=== PATIENT | female | born 2000 | race Caucasian/White ===

== ENCOUNTER 2022-08-29 11:50 | Inpatient (IN) | payer BC, MEDICAID, SELFPAY ==
[2022-08-29 12:07] VITALS: BP 115/71; PULSE 62; RESP 18; TEMP 36.5; O2SAT 99; BMI 23.8
[2022-08-29 12:11] VITALS: BP 115/71; PULSE 62; RESP 18; TEMP 36.5; O2SAT 99
--- NOTE | 2022-08-29 12:24 | MHC.CARE ---
[facility] contacts: Counseling Office, Yi Francois - [phone]/After hours projection camera operator [phone]
[2022-08-29 13:03] LABS: MANUAL DIFF FLAG NO
[2022-08-29 13:07] LABS: Basophils Absolute Auto 0.1 X10*3/uL (0.0-0.2); Basophils Percent Auto 0.8 % (0-2); Eosinophils Percent Auto 0.2 % (0-4); Hematocrit 47.5 % (37.0-47.0); Hemoglobin 16.4 g/dl (12.0-16.0); Imm Gran Abs Auto 0.03 X10*3/uL (0.00-0.03); Imm Gran Pct Auto 0.3 % (0.0-0.4); Lymphocytes Absolute Auto 1.9 X10*3/uL (1.2-4.9); Lymphocytes Percent Auto 18.6 % (20-40); Mean Corpuscular HGB Conc 34.5 g/dl (31.0-35.0); Mean Corpuscular Hemoglobin 29.9 pg (27.0-33.0); Mean Corpuscular Volume 86.5 fL (80.0-98.0); Mean Platelet Volume 9.2 fL (9.4-12.3); Monocytes Absolute Auto 0.7 X10*3/uL (0.1-1.2); Monocytes Percent Auto 6.8 % (2-11); Neutrophils Absolute Auto 7.6 x10*3/uL (2.0-8.3); Neutrophils Percent Auto 73.3 % (45-73); Platelet Count 286 X10*3/uL (160-400); Red Blood Count 5.49 X10*6/uL (4.20-5.50); Red Cell Distribution Width 11.7 % (11.0-16.0); White Blood Count 10.4 X10*3/uL (4.8-10.8)
[2022-08-29 13:18] LABS: COVID-19 Test Negative (Negative); IDNOW Serial# 16C4AD1C
[2022-08-29 13:28] LABS: Alanine Aminotransferase 10 U/L (0-31); Albumin Level 4.7 g/dL (3.5-5.0); Alkaline Phosphatase 80 U/L (39-117); Anion Gap 11 (12-20); Aspartate Amino Transferase 16 U/L (5-31); Bilirubin Direct 0.6 mg/dL (0.0-0.5); Bilirubin Total 2.8 mg/dL (0.0-1.0); Blood Urea Nitrogen 10 mg/dL (9-16); Calcium 9.9 mg/dL (8.4-10.2); Carbon Dioxide 29 mmol/L (22-29); Chloride 105 mmol/L (96-108); Creatinine Clr Calc Pharmacy 85.2; Estimated Glomerular Filt Rate > 60; Glucose Random 81 mg/dL (60-115); Lipase 17 U/L (8-78); Potassium 4.1 mmol/L (3.3-5.1); Sodium 141 mmol/L (135-145); Total Protein 7.6 g/dL (6.5-8.0)
[2022-08-29 13:30] LABS: Ethanol < 10 mg/dL
[2022-08-29 13:36] LABS: HCG Quantitative < 2 mIU/mL
[2022-08-29 13:49] LABS: UPreg QC Valid YES; Urine Pregnancy NEGATIVE (NEGATIVE)
[2022-08-29 13:56] LABS: Appearance Urine Clear; Color Urine Yellow; Glucose Urine UA Negative (Negative); Leukocyte Esterase Urine Trace (Negative); Nitrite Urine Negative (Negative); Specific Gravity - Urine <= 1.005 (1.005-1.025); UMIC TRIGGER UACC YES; Urine Blood Large (3+) (Negative); Urine Ketones Negative (Negative); Urine Protein Negative (Neg-Trace)
[2022-08-29 13:59] LABS: Bacteria Urine None Seen (None Seen); Hyaline Casts Urine 0-2 /LPF (0-2); Squamous Epithelial Cell Urine 0-2 /HPF (0-2); WBC Urine 0-5 /HPF (0-5)
[2022-08-29 14:00] VITALS: RESP 18
[2022-08-29 14:02] LABS: Amphetamine Screen Urine Not Detected (Not Detect); Barbiturates, Urine Not Detected (Not Detect); Benzodiazepines Screen Urine Not Detected (Not Detect); Cannabinoid Screen Urine Not Detected (Not Detect); Cocaine Screen Urine Not Detected (Not Detect); Fentanyl, urine Not Detected (Not Detect); Opiate Screen Urine Not Detected (Not Detect); Phencyclidine Screen Urine Not Detected (Not Detect)
--- NOTE | 2022-08-29 14:03 | PC.NURSE ---
ED provider at bedside for initical evaluation.
--- NOTE | 2022-08-29 14:12 | ED.PSYCH ---
HPI - Psych General Chief Complaint: Psychiatric Symptoms Stated Complaint: From [facility], AMS per EMS Time Seen by Provider: 08/29/22 13:56 Source: patient and RN notes reviewed History of Present Illness HPI Narrative: Patient is previously healthy 21-year-old college student at [employer]. She is from [facility]. She states she has been having increased anxiety, depression, vague suicidal ideation without a specific plan. No prior hospitalizations for psychiatric issues. She denies any known medical issues but recently had the flu, 2 weeks ago. Treated with Tamiflu. She states since then she has been feeling very tired and has not yet recovered. Otherwise no history of asthma, diabetes, hypertension or any other medical issues that she is aware of. She does not take medications. She has not tried to harm herself. Related Data Home Medications Medication Instructions Recorded Confirmed No Known Home Meds 08/29/22 08/29/22 Allergies Allergy/AdvReac Type Severity Reaction Status Date / Time No Known Allergies Allergy Verified 08/29/22 12:12 Review of Systems Constitutional: Comments: No fevers or chills. Positive recent malaise however Cardiovascular: Comments: No chest pain Respiratory: Comments: No dyspnea Gastrointestinal: Comments: No abdominal issues Genitourinary: Comments: No urinary bonilla PMFSH Past Medical History Medical History (Updated 08/31/22 @ 15:58 by Ting Daly) No known health problems Surgical History (Updated 08/29/22 @ 12:09 by Savanah Villaseñor) No history of previous surgery Social History Social History Household Members: Friend(s) Household Members Other:: Roommate (1) Housing: Other Housing Other:: Dorm Do you presently have visiting nurse or other home services: No Alcohol intake: never Patient Tobacco Use Status: Never used Tobacco Smoked in Last 30 Days: No e-Cigarette/Vaping Use: Never Used Patient Interested in Nicotine Replacement: No Use of substances other than those prescribed or required for medical reasons: Yes Substance Use Type: Marijuana and Caffiene Substance Use Type Other:: A couple cups of coffee Substance Use Frequency: Daily Last Used Substance: Weeks (ago) Last Used Substance Other:: 2 weeks Currently Displaying Signs/Symptoms of Drug Intoxication Withdrawal: No Any prior treatment program specific to substance use: No Have you been hit, kicked, punched, or otherwise hurt by someone within the past year? If so, by whom?: No Do you feel safe in your current relationship?: No Current Relationship Is there a partner from a previous relationship who is making you feel unsafe now?: Yes ( Not because of violence, but because of their own suicidal intentions ) Are you made to feel afraid or neglected: No [employer] Healthcare Practices: [facility] Advance Directives: No Advance Directives Information Provided: No Healthcare Proxy: No Guardian: No Do you have thoughts of harming others: None Do you have a plan to hurt others: No Plan Recently lost weight without trying: Unsure Eating poorly because of decreased appetite: Yes Nutrition Risks: No Nutritional Risk Patient : No : No Poor oral hygiene: No service: No Sexual orientation: Straight/Heterosexual Physical Exam Vital Signs: Vital Signs: Last Vital Signs Temp 97.7 F 08/31/22 08:00 Pulse 88 08/31/22 08:00 Resp 16 08/30/22 17:42 BP 111/62 08/31/22 08:00 Pulse Ox 100 08/31/22 08:00 O2 Del Method 08/31/22 08:00 BMI result Body Mass Index 23.8 Const: Other: Awake alert. No acute distress. Cooperative. HEENT: Other: Normocephalic atraumatic Resp: Other: Clear and equal bilaterally Cardio: Other: Regular rate and rhythm without murmurs rubs or gallops GI: Other: Soft nontender nondistended Skin: Other: Warm pink and dry Neuro: Other: Nonfocal neuro exam. Ambulatory without difficulty Psych: Other: Depression with vague suicidal ideation. No hallucinations. No homicidal ideation. Cooperative and interested in getting help Medications Administered Discontinued Medications Generic Name Dose Route Start Last Admin Trade Name Freq PRN Reason Stop Dose Admin Hydroxyzine HCl 25 mg 08/30/22 16:24 08/30/22 22:34 Hydroxyzine Hcl 25 Mg Tablet PO 25 mg Q6H PRN Administration Anxiety Influenza Virus Vaccine 0.5 ml 08/30/22 17:39 08/30/22 18:34 Flu Vacc [id number](6mos Up)/Pf 0.5 Ml Syringe IM 08/30/22 17:40 Not Given .ONCE ONE Lorazepam 0.5 mg 08/29/22 20:45 08/29/22 21:28 Lorazepam 0.5 Mg Tablet PO 08/29/22 20:46 0.5 mg ONCE ONE Administration Olanzapine 5 mg 08/29/22 20:45 08/29/22 21:28 Olanzapine 5 Mg Tablet PO 08/29/22 20:46 5 mg ONCE ONE Administration Trazodone HCl 50 mg 08/30/22 16:24 08/30/22 21:00 Trazodone Hcl 50 Mg Tablet PO 50 mg BEDTIME MRX1 PRN Administration Insomnia Medical Decision Making Medical Decision Making MDM Narrative: Patient with anxiety, depression, suicidal ideation without priors hospitalizations. No evidence of medical issues or causes. Workup shows normal labs including CBC and chemistries. Tox screen negative. COVID negative HCG negative Stable for evaluation by crisis team Lab Data 08/29/22 12:57 08/29/22 12:57 Labs: Lab Results 08/29/22 08/29/22 08/29/22 Range/Units 12:32 12:57 12:57 WBC 10.4 (4.8-10.8) X10*3/uL RBC 5.49 (4.20-5.50) X10*6/uL Hgb 16.4 H (12.0-16.0) g/dl Hct 47.5 H (37.0-47.0) % MCV 86.5 (80.0-98.0) fL MCH 29.9 (27.0-33.0) pg MCHC 34.5 (31.0-35.0) g/dl RDW 11.7 (11.0-16.0) % Plt Count 286 (160-400) X10*3/uL MPV 9.2 L (9.4-12.3) fL Immature Gran % (Auto) 0.3 (0.0-0.4) % Neut % (Auto) 73.3 H (45-73) % Lymph % (Auto) 18.6 L (20-40) % [place] % (Auto) 6.8 (2-11) % Eos % (Auto) 0.2 (0-4) % Baso % (Auto) 0.8 (0-2) % Lymph # (Auto) 1.9 (1.2-4.9) X10*3/uL [place] # (Auto) 0.7 (0.1-1.2) X10*3/uL Eos # (Auto) 0.0 (0.0-0.4) X10*3/uL Baso # (Auto) 0.1 (0.0-0.2) X10*3/uL Abs Immat Gran (auto) 0.03 (0.00-0.03) X10*3/uL Absolute Neuts (auto) 7.6 (2.0-8.3) x10*3/uL Absolute Nucleated RBC 0.000 (0.0-0.012) X10*3/uL Nucleated RBC % (auto) 0.0 (0.0-0.2) /100WBC Sodium 141 (135-145) mmol/L Potassium 4.1 (3.3-5.1) mmol/L Chloride 105 (96-108) mmol/L Carbon Dioxide 29 (22-29) mmol/L Anion Gap 11 L (12-20) BUN 10 (9-16) mg/dL Creatinine 0.84 (0.5-1.4) mg/dL Estim Creat Clear Calc 85.2 Estimated GFR > 60 Random Glucose 81 (60-115) mg/dL Calcium 9.9 (8.4-10.2) mg/dL Total Bilirubin 2.8 H (0.0-1.0) mg/dL Direct Bilirubin 0.6 H (0.0-0.5) mg/dL AST 16 (5-31) U/L ALT 10 (0-31) U/L Alkaline Phosphatase 80 (39-117) U/L Total Protein 7.6 (6.5-8.0) g/dL Albumin 4.7 (3.5-5.0) g/dL Lipase 17 (8-78) U/L Beta HCG, Quant mIU/mL Urine Color Urine Appearance Urine pH (5.0-9.0) Ur Specific [place] (1.005-1.025) Urine Protein (Neg-Trace) mg/dL Urine Glucose (UA) (Negative) mg/dL Urine Ketones (Negative) mg/dL Urine Blood (Negative) Urine Nitrite (Negative) Ur Leukocyte Esterase (Negative) Urine RBC (0-2) /HPF Urine WBC (0-5) /HPF Ur Squamous Epith Cells (0-2) /HPF Urine Bacteria (None Seen) Hyaline Casts (0-2) /LPF Urine Test (NEGATIVE) Urine Opiates Screen (Not Detect) Urine Fentanyl Screen (Not Detect) Ur Barbiturates Screen (Not Detect) Ur Phencyclidine Scrn (Not Detect) Ur Amphetamines Screen (Not Detect) U Benzodiazepines Scrn (Not Detect) Urine Cocaine Screen (Not Detect) U Marijuana (THC) Screen (Not Detect) Ethyl Alcohol mg/dL COVID-19 (ELMO) Negative (Negative) COVID-19 Clin Com See Note 08/29/22 08/29/22 08/29/22 Range/Units 12:57 12:57 13:37 WBC (4.8-10.8) X10*3/uL RBC (4.20-5.50) X10*6/uL Hgb (12.0-16.0) g/dl Hct (37.0-47.0) % MCV (80.0-98.0) fL MCH (27.0-33.0) pg MCHC (31.0-35.0) g/dl RDW (11.0-16.0) % Plt Count (160-400) X10*3/uL MPV (9.4-12.3) fL Immature Gran % (Auto) (0.0-0.4) % Neut % (Auto) (45-73) % Lymph % (Auto) (20-40) % [place] % (Auto) (2-11) % Eos % (Auto) (0-4) % Baso % (Auto) (0-2) % Lymph # (Auto) (1.2-4.9) X10*3/uL [place] # (Auto) (0.1-1.2) X10*3/uL Eos # (Auto) (0.0-0.4) X10*3/uL Baso # (Auto) (0.0-0.2) X10*3/uL Abs Immat Gran (auto) (0.00-0.03) X10*3/uL Absolute Neuts (auto) (2.0-8.3) x10*3/uL Absolute Nucleated RBC (0.0-0.012) X10*3/uL Nucleated RBC % (auto) (0.0-0.2) /100WBC Sodium (135-145) mmol/L Potassium (3.3-5.1) mmol/L Chloride (96-108) mmol/L Carbon Dioxide (22-29) mmol/L Anion Gap (12-20) BUN (9-16) mg/dL Creatinine (0.5-1.4) mg/dL Estim Creat Clear Calc Estimated GFR Random Glucose (60-115) mg/dL Calcium (8.4-10.2) mg/dL Total Bilirubin (0.0-1.0) mg/dL Direct Bilirubin (0.0-0.5) mg/dL AST (5-31) U/L ALT (0-31) U/L Alkaline Phosphatase (39-117) U/L Total Protein (6.5-8.0) g/dL Albumin (3.5-5.0) g/dL Lipase (8-78) U/L Beta HCG, Quant < 2 mIU/mL Urine Color Yellow Urine Appearance Clear Urine pH 7.0 (5.0-9.0) Ur Specific [place] <= 1.005 (1.005-1.025) Urine Protein Negative (Neg-Trace) mg/dL Urine Glucose (UA) Negative (Negative) mg/dL Urine Ketones Negative (Negative) mg/dL Urine Blood Large (3+) H (Negative) Urine Nitrite Negative (Negative) Ur Leukocyte Esterase Trace H (Negative) Urine RBC 11-20 H (0-2) /HPF Urine WBC 0-5 (0-5) /HPF Ur Squamous Epith Cells 0-2 (0-2) /HPF Urine Bacteria None Seen (None Seen) Hyaline Casts 0-2 (0-2) /LPF Urine Test (NEGATIVE) Urine Opiates Screen (Not Detect) Urine Fentanyl Screen (Not Detect) Ur Barbiturates Screen (Not Detect) Ur Phencyclidine Scrn (Not Detect) Ur Amphetamines Screen (Not Detect) U Benzodiazepines Scrn (Not Detect) Urine Cocaine Screen (Not Detect) U Marijuana (THC) Screen (Not Detect) Ethyl Alcohol < 10 mg/dL COVID-19 (ELMO) (Negative) COVID-19 Clin Com 08/29/22 08/29/22 Range/Units 13:37 13:37 WBC (4.8-10.8) X10*3/uL RBC (4.20-5.50) X10*6/uL Hgb (12.0-16.0) g/dl Hct (37.0-47.0) % MCV (80.0-98.0) fL MCH (27.0-33.0) pg MCHC (31.0-35.0) g/dl RDW (11.0-16.0) % Plt Count (160-400) X10*3/uL MPV (9.4-12.3) fL Immature Gran % (Auto) (0.0-0.4) % Neut % (Auto) (45-73) % Lymph % (Auto) (20-40) % [place] % (Auto) (2-11) % Eos % (Auto) (0-4) % Baso % (Auto) (0-2) % Lymph # (Auto) (1.2-4.9) X10*3/uL [place] # (Auto) (0.1-1.2) X10*3/uL Eos # (Auto) (0.0-0.4) X10*3/uL Baso # (Auto) (0.0-0.2) X10*3/uL Abs Immat Gran (auto) (0.00-0.03) X10*3/uL Absolute Neuts (auto) (2.0-8.3) x10*3/uL Absolute Nucleated RBC (0.0-0.012) X10*3/uL Nucleated RBC % (auto) (0.0-0.2) /100WBC Sodium (135-145) mmol/L Potassium (3.3-5.1) mmol/L Chloride (96-108) mmol/L Carbon Dioxide (22-29) mmol/L Anion Gap (12-20) BUN (9-16) mg/dL Creatinine (0.5-1.4) mg/dL Estim Creat Clear Calc Estimated GFR Random Glucose (60-115) mg/dL Calcium (8.4-10.2) mg/dL Total Bilirubin (0.0-1.0) mg/dL Direct Bilirubin (0.0-0.5) mg/dL AST (5-31) U/L ALT (0-31) U/L Alkaline Phosphatase (39-117) U/L Total Protein (6.5-8.0) g/dL Albumin (3.5-5.0) g/dL Lipase (8-78) U/L Beta HCG, Quant mIU/mL Urine Color Urine Appearance Urine pH (5.0-9.0) Ur Specific [place] (1.005-1.025) Urine Protein (Neg-Trace) mg/dL Urine Glucose (UA) (Negative) mg/dL Urine Ketones (Negative) mg/dL Urine Blood (Negative) Urine Nitrite (Negative) Ur Leukocyte Esterase (Negative) Urine RBC (0-2) /HPF Urine WBC (0-5) /HPF Ur Squamous Epith Cells (0-2) /HPF Urine Bacteria (None Seen) Hyaline Casts (0-2) /LPF Urine Test NEGATIVE (NEGATIVE) Urine Opiates Screen Not Detected (Not Detect) Urine Fentanyl Screen Not Detected (Not Detect) Ur Barbiturates Screen Not Detected (Not Detect) Ur Phencyclidine Scrn Not Detected (Not Detect) Ur Amphetamines Screen Not Detected (Not Detect) U Benzodiazepines Scrn Not Detected (Not Detect) Urine Cocaine Screen Not Detected (Not Detect) U Marijuana (THC) Screen Not Detected (Not Detect) Ethyl Alcohol mg/dL COVID-19 (ELMO) (Negative) COVID-19 Clin Com Discharge Plan Discharge Clinical Impression: Suicidal ideation Patient Disposition: Admitted As Inpatient Interventions: Admission Worksheet (ED) Last Done: 08/30/22 16:10 Discharge Date/Time: 08/30/22 16:47
--- NOTE | 2022-08-29 14:25 | MHC.CARE ---
Per collateral call with Counselor Sondra Glez . Depression/anxiety ongoing for some time, came in for a remote crisis apt and reported increase in depression/anxiety symptoms. Does not attend to ADLS, not sleeping, dissociation, Vague SI, no plan or intent. Self-harm behavior/SI may be acted upon when she is in a dissociated state. Has quit lots of group activities, dropping classes. No prior Hx of SI, possible self harm. The family is aware she is struggling, although to the full extent is unknown since they live in [place].
--- NOTE | 2022-08-29 16:07 | PC.NURSE ---
Care team clinician at bedside at this time.
[2022-08-29 20:54] VITALS: BP 126/76; PULSE 52; RESP 16; TEMP 36.3; O2SAT 100
[2022-08-29] MEDS: OLANZapine 5 MG TABLET PO (21:28)
[2022-08-29] MEDS: LORazepam 0.5 MG TABLET PO (21:28)
--- NOTE | 2022-08-30 05:49 | PC.NURSE ---
Patient slept through the night, no distress observed/reported at this time, patient struggled to fall sleep, Ativan 0.5 mg and Olanzapine 5 mg PO administered at 2117 with + effect, disposition per care team is section 12 inpatient bed search, patient is pre-accepted to [facility], VSS, will continue to monitor.
[2022-08-30 05:56] VITALS: BP 96/54; PULSE 55; RESP 14; TEMP 36.4; O2SAT 99
[2022-08-30 09:33] VITALS: BP 116/69; PULSE 72; RESP 12; TEMP 36.4; O2SAT 100
--- NOTE | 2022-08-30 13:00 | PC.NURSE ---
assumed care of pt at 110, pt resting quietly in bed, plan to admit to [facility] later today.
--- NOTE | 2022-08-30 15:11 | PC.NURSE ---
RN-RN report given to [facility].
[2022-08-30 17:42] VITALS: BP 110/71; PULSE 76; RESP 16; TEMP 36.7; O2SAT 98
--- NOTE | 2022-08-30 17:48 | PC.ADMIT ---
Patient is a 21-year-old female. DX: Major Depressive Disorder, moderate. Signed a conditional voluntary for admission, followed by 3 day notice. Referred by CARE team following request of counseling center at [facility]. Patient had telehealth crisis evaluation with recommendation for further evaluation. Patient easily engaged. Alert and oriented x4. Calm and cooperative with admission process. Mood depressed. Affect congruent. Reports avolition, anergia, anhedonia. I can't bring myself to do anything . Returned to college campus Saturday, reports loss of interest in music, TV, books, things previously enjoyed. Reports racing thoughts with difficulty focusing and concentrating. Reports feeling overwhelmed, having difficulty registering for classes. Denies suicidal ideation at this time. No overt psychosis or expressed delusions. Denies A/V hallucinations, paranoia, or suspiciousness. No previous hospitalizations, ambivalent regarding HLOC. Patient reports poor sleep due to racing thoughts. States heart races at night. Patient states difficulty shutting it off . Reports loss of interest in food, although maintains adequate nutrition. No acute medical problems. NKA. COVID negative. Previously received 2022 flu vaccination. TOX screen negative, endorses cannabis use, occasional alcohol use. Patient non-tobacco smoker. Patient interested in medication evaluation/options for treatment of depression. Patient oriented to unit, placed on 15 minute safety checks. See nursing admission/crisis evaluation for further details.
[2022-08-30 21:00] VITALS: BP 100/60; PULSE 59; TEMP 36.4; O2SAT 98
[2022-08-30] MEDS: traZODone HCL 50 MG TABLET PO (21:00)
[2022-08-30] MEDS: hydrOXYzine HCL 25 MG TABLET PO (22:34)
[2022-08-31 08:00] VITALS: BP 111/62; PULSE 88; TEMP 36.5; O2SAT 100
--- NOTE | 2022-08-31 09:24 | HO.PSYADMNOT ---
HPI Date of Service: 08/31/22 Chief Complaint: SI Sources of Information: patient interviewed, chart reviewed and crisis/core team assessment reviewed Additional Sources of Information: Parents HPI Subjective Notes: Murry Warning and Conditional Voluntary Narrative: Ms. Walsh is a 21 year-old woman with no prior psych hx. Pt reports that around mid July she started to feel increasingly more anxious, worried about going back to school and being able to do school work. Per crisis report, pt was with them recently and she appeared anxious and restless. Pt was brought from [email or web address] after she reported to school counselor increased anxiety and suicidal thoughts but no plan or intent. In the ED, pt's utox was negative. On the unit, pt presents as anxious. Pt reports in past few week, after getting increasingly more anxious, palpitation, sense of impending doom. Pt reports having flu and started tamiflu. Pt reports poor sleep. She adamantly denies any plan or intent to harm herself. Pt reports she was seeking outpatient support as she is not planning nor is having any thoughts of harming herself. Parents denied any safety concerns and agree with continuing outpatient support through her school. No hx of VH/AH. No s/s of eric or hypomania. Medical Evaluation Reviewed: Yes [facility] Medical History (Updated 08/31/22 @ 15:58 by Ting Daly) No known health problems Surgical History (Updated 08/29/22 @ 12:09 by Savanah Villaseñor) No history of previous surgery Family History: none Social History: In college. No children, from [place], [place]. Substance History: None Trauma History: None Diagnostics Vital Signs (24Hr): Vital Signs - 24 hr 08/30/22 09:33 08/30/22 17:42 08/30/22 21:00 Temperature 97.5 F 98.1 F 97.6 F Pulse Rate 72 76 59 Respiratory Rate 12 16 Blood Pressure 116/69 110/71 100/60 Pulse Oximetry 100 98 98 Oxygen Delivery Method Room Air Room Air Room Air 08/31/22 08:00 Temperature 97.7 F Pulse Rate 88 Respiratory Rate Blood Pressure 111/62 Pulse Oximetry 100 Oxygen Delivery Method Room Air BMI result Body Mass Index 23.8 Labs 08/29/22 12:57 08/29/22 12:57 Labs: Laboratory Results - last 48 hr 08/29/22 08/29/22 08/29/22 12:32 12:57 12:57 WBC 10.4 RBC 5.49 Hgb 16.4 H Hct 47.5 H MCV 86.5 MCH 29.9 MCHC 34.5 RDW 11.7 Plt Count 286 MPV 9.2 L Immature Gran % (Auto) 0.3 Neut % (Auto) 73.3 H Lymph % (Auto) 18.6 L [place] % (Auto) 6.8 Eos % (Auto) 0.2 Baso % (Auto) 0.8 Lymph # (Auto) 1.9 [place] # (Auto) 0.7 Eos # (Auto) 0.0 Baso # (Auto) 0.1 Abs Immat Gran (auto) 0.03 Absolute Neuts (auto) 7.6 Absolute Nucleated RBC 0.000 Nucleated RBC % (auto) 0.0 Sodium 141 Potassium 4.1 Chloride 105 Carbon Dioxide 29 Anion Gap 11 L BUN 10 Creatinine 0.84 Estim Creat Clear Calc 85.2 Estimated GFR > 60 Random Glucose 81 Calcium 9.9 Total Bilirubin 2.8 H Direct Bilirubin 0.6 H AST 16 ALT 10 Alkaline Phosphatase 80 Total Protein 7.6 Albumin 4.7 Lipase 17 Beta HCG, Quant Urine Color Urine Appearance Urine pH Ur Specific [place] Urine Protein Urine Glucose (UA) Urine Ketones Urine Blood Urine Nitrite Ur Leukocyte Esterase Urine RBC Urine WBC Ur Squamous Epith Cells Urine Bacteria Hyaline Casts Urine Test Urine Opiates Screen Urine Fentanyl Screen Ur Barbiturates Screen Ur Phencyclidine Scrn Ur Amphetamines Screen U Benzodiazepines Scrn Urine Cocaine Screen U Marijuana (THC) Screen Ethyl Alcohol COVID-19 (ELMO) Negative COVID-19 Clin Com See Note 08/29/22 08/29/22 08/29/22 12:57 12:57 13:37 WBC RBC Hgb Hct MCV MCH MCHC RDW Plt Count MPV Immature Gran % (Auto) Neut % (Auto) Lymph % (Auto) [place] % (Auto) Eos % (Auto) Baso % (Auto) Lymph # (Auto) [place] # (Auto) Eos # (Auto) Baso # (Auto) Abs Immat Gran (auto) Absolute Neuts (auto) Absolute Nucleated RBC Nucleated RBC % (auto) Sodium Potassium Chloride Carbon Dioxide Anion Gap BUN Creatinine Estim Creat Clear Calc Estimated GFR Random Glucose Calcium Total Bilirubin Direct Bilirubin AST ALT Alkaline Phosphatase Total Protein Albumin Lipase Beta HCG, Quant < 2 Urine Color Yellow Urine Appearance Clear Urine pH 7.0 Ur Specific [place] <= 1.005 Urine Protein Negative Urine Glucose (UA) Negative Urine Ketones Negative Urine Blood Large (3+) H Urine Nitrite Negative Ur Leukocyte Esterase Trace H Urine RBC 11-20 H Urine WBC 0-5 Ur Squamous Epith Cells 0-2 Urine Bacteria None Seen Hyaline Casts 0-2 Urine Test Urine Opiates Screen Urine Fentanyl Screen Ur Barbiturates Screen Ur Phencyclidine Scrn Ur Amphetamines Screen U Benzodiazepines Scrn Urine Cocaine Screen U Marijuana (THC) Screen Ethyl Alcohol < 10 COVID-19 (ELMO) COVID-19 [place] Com 08/29/22 08/29/22 13:37 13:37 WBC RBC Hgb Hct MCV MCH MCHC RDW Plt Count MPV Immature Gran % (Auto) Neut % (Auto) Lymph % (Auto) [place] % (Auto) Eos % (Auto) Baso % (Auto) Lymph # (Auto) [place] # (Auto) Eos # (Auto) Baso # (Auto) Abs Immat Gran (auto) Absolute Neuts (auto) Absolute Nucleated RBC Nucleated RBC % (auto) Sodium Potassium Chloride Carbon Dioxide Anion Gap BUN Creatinine Estim Creat Clear Calc Estimated GFR Random Glucose Calcium Total Bilirubin Direct Bilirubin AST ALT Alkaline Phosphatase Total Protein Albumin Lipase Beta HCG, Quant Urine Color Urine Appearance Urine pH Ur Specific [place] Urine Protein Urine Glucose (UA) Urine Ketones Urine Blood Urine Nitrite Ur Leukocyte Esterase Urine RBC Urine WBC Ur Squamous Epith Cells Urine Bacteria Hyaline Casts Urine Test NEGATIVE Urine Opiates Screen Not Detected Urine Fentanyl Screen Not Detected Ur Barbiturates Screen Not Detected Ur Phencyclidine Scrn Not Detected Ur Amphetamines Screen Not Detected U Benzodiazepines Scrn Not Detected Urine Cocaine Screen Not Detected U Marijuana (THC) Screen Not Detected Ethyl Alcohol COVID-19 (ELMO) COVID-19 Clin Com Meds/Allergies Meds Home Medications Medication Instructions Recorded Confirmed Type No Known Home Meds 08/29/22 08/29/22 History Allergies Allergies Allergy/AdvReac Type Severity Reaction Status Date / Time No Known Allergies Allergy Verified 08/29/22 12:12 Mental Status Exam Mental Status Exam Narrative: Appearance: wearing hospital gown, fair hygiene, in NAD Behavior: cooperative Psychomotor: no agitation or retardation noted Speech: clear, normal rate/rhythm/volume, spontaneous TP: linear TC: no signs of psychosis, wanting to go home Mood: better Affect: slightly anxious SI: none HI: none Delusions: none VH/AH: none Insight/judgment: intact x 2. Memory/cog: alert, oriented x 3. grossly intact with conversational testing. Assessment & Plan Assessment & Plan (1) Adjustment disorder with anxiety: Status: Acute Code(s): F43.22 - Adjustment disorder with anxiety Plan Ms. Walsh is a 21 year-old woman with no prior hx of psychiatric symptoms presenting increasingly more anxious, restless, poor sleep in past few weeks after taking tamiflu. She identifies stressors such as starting school and being involved in different activities but this her usual workload. She reports feeling of anxiety commenced prior to starting this semester and in combination with tamiflu. She adamantly denies suicidal ideation, plan or intent. She reports feeling less anxious, less overwhelmed and asking to be discharged today. Parents in agreement and denied any safety concern. It is possible that current presentation is related to tamiflu, certainly this medication has been associated with side effect of psychiatric symptoms including increase anxious mood, panic attacks and even psychosis. Pt presents as calmer. No imminent safety risk and plans to continue with OP providers to manage any remending symptoms. Patient educated on: diagnosis Reason for continued inpatient stay Substantial Risk for: harm to self Statement Statement: I have reviewed the history and physical and performed a pertinent examination on my patient. No changes have occurred unless specified. If the History and Physical was not performed prior to admission, the Hospitalist's service will be consulted for completing the admission physical. Time Spent With Patient Time: Total time managing care of this patient today ____ minutes.
--- NOTE | 2022-08-31 16:03 | P.DS_ITS ---
DS: Providers Provider Date of Service: 08/31/22 Date of admission: 08/30/22 15:56 Primary care physician: Unknown Physician DS: Diagnosis Discharge Diagnosis (1) Adjustment disorder with anxiety: Status: Acute DS: Medications Discharge Medications Home Medications: Home Medications Medication Instructions Recorded Confirmed No Known Home Meds 08/29/22 08/29/22 Mental Status Exam Mental Status Exam Narrative: Appearance: wearing hospital gown, fair hygiene, in NAD Behavior: cooperative Psychomotor: no agitation or retardation noted Speech: clear, normal rate/rhythm/volume, spontaneous TP: linear TC: no signs of psychosis, wanting to go home Mood: better Affect: slightly anxious SI: none HI: none Delusions: none VH/AH: none Insight/judgment: intact x 2. Memory/cog: alert, oriented x 3. grossly intact with conversational testing. Data Data Completed and Pending Completed studies during hospitalization [Text1]: 08/29/22 08/29/22 08/29/22 12:32 12:57 12:57 WBC 10.4 RBC 5.49 Hgb 16.4 H Hct 47.5 H MCV 86.5 MCH 29.9 MCHC 34.5 RDW 11.7 Plt Count 286 MPV 9.2 L Immature Gran % (Auto) 0.3 Neut % (Auto) 73.3 H Lymph % (Auto) 18.6 L Weld % (Auto) 6.8 Eos % (Auto) 0.2 Baso % (Auto) 0.8 Lymph # (Auto) 1.9 Weld # (Auto) 0.7 Eos # (Auto) 0.0 Baso # (Auto) 0.1 Abs Immat Gran (auto) 0.03 Absolute Neuts (auto) 7.6 Absolute Nucleated RBC 0.000 Nucleated RBC % (auto) 0.0 Sodium 141 Potassium 4.1 Chloride 105 Carbon Dioxide 29 Anion Gap 11 L BUN 10 Creatinine 0.84 Estim Creat Clear Calc 85.2 Estimated GFR > 60 Random Glucose 81 Calcium 9.9 Total Bilirubin 2.8 H Direct Bilirubin 0.6 H AST 16 ALT 10 Alkaline Phosphatase 80 Total Protein 7.6 Albumin 4.7 Lipase 17 Beta HCG, Quant Urine Color Urine Appearance Urine pH Ur Specific [place] Urine Protein Urine Glucose (UA) Urine Ketones Urine Blood Urine Nitrite Ur Leukocyte Esterase Urine RBC Urine WBC Ur Squamous Epith Cells Urine Bacteria Hyaline Casts Urine Test Urine Opiates Screen Urine Fentanyl Screen Ur Barbiturates Screen Ur Phencyclidine Scrn Ur Amphetamines Screen U Benzodiazepines Scrn Urine Cocaine Screen U Marijuana (THC) Screen Ethyl Alcohol COVID-19 ([facility]) Negative COVID-19 Clin Com See Note 08/29/22 08/29/22 08/29/22 12:57 12:57 13:37 WBC RBC Hgb Hct MCV MCH MCHC RDW Plt Count MPV Immature Gran % (Auto) Neut % (Auto) Lymph % (Auto) Weld % (Auto) Eos % (Auto) Baso % (Auto) Lymph # (Auto) Weld # (Auto) Eos # (Auto) Baso # (Auto) Abs Immat Gran (auto) Absolute Neuts (auto) Absolute Nucleated RBC Nucleated RBC % (auto) Sodium Potassium Chloride Carbon Dioxide Anion Gap BUN Creatinine Estim Creat Clear Calc Estimated GFR Random Glucose Calcium Total Bilirubin Direct Bilirubin AST ALT Alkaline Phosphatase Total Protein Albumin Lipase Beta HCG, Quant < 2 Urine Color Yellow Urine Appearance Clear Urine pH 7.0 Ur Specific [place] <= 1.005 Urine Protein Negative Urine Glucose (UA) Negative Urine Ketones Negative Urine Blood Large (3+) H Urine Nitrite Negative Ur Leukocyte Esterase Trace H Urine RBC 11-20 H Urine WBC 0-5 Ur Squamous Epith Cells 0-2 Urine Bacteria None Seen Hyaline Casts 0-2 Urine Test Urine Opiates Screen Urine Fentanyl Screen Ur Barbiturates Screen Ur Phencyclidine Scrn Ur Amphetamines Screen U Benzodiazepines Scrn Urine Cocaine Screen U Marijuana (THC) Screen Ethyl Alcohol < 10 COVID-19 ([facility]) COVID-19 [employer] Com 08/29/22 08/29/22 13:37 13:37 WBC RBC Hgb Hct MCV MCH MCHC RDW Plt Count MPV Immature Gran % (Auto) Neut % (Auto) Lymph % (Auto) Weld % (Auto) Eos % (Auto) Baso % (Auto) Lymph # (Auto) Weld # (Auto) Eos # (Auto) Baso # (Auto) Abs Immat Gran (auto) Absolute Neuts (auto) Absolute Nucleated RBC Nucleated RBC % (auto) Sodium Potassium Chloride Carbon Dioxide Anion Gap BUN Creatinine Estim Creat Clear Calc Estimated GFR Random Glucose Calcium Total Bilirubin Direct Bilirubin AST ALT Alkaline Phosphatase Total Protein Albumin Lipase Beta HCG, Quant Urine Color Urine Appearance Urine pH Ur Specific [place] Urine Protein Urine Glucose (UA) Urine Ketones Urine Blood Urine Nitrite Ur Leukocyte Esterase Urine RBC Urine WBC Ur Squamous Epith Cells Urine Bacteria Hyaline Casts Urine Test NEGATIVE Urine Opiates Screen Not Detected Urine Fentanyl Screen Not Detected Ur Barbiturates Screen Not Detected Ur Phencyclidine Scrn Not Detected Ur Amphetamines Screen Not Detected U Benzodiazepines Scrn Not Detected Urine Cocaine Screen Not Detected U Marijuana (THC) Screen Not Detected Ethyl Alcohol COVID-19 ([facility]) COVID-19 Clin Com DS: Summary Hospital Course Hospital Course: Ms. Walsh is a 21 year-old woman with no prior psych hx. Pt reports that around mid July she started to feel increasingly more anxious, worried about going back to school and being able to do school work. Per crisis report, pt was with them recently and she appeared anxious and restless. Pt was brought from [facility] after she reported to school counselor increased anxiety and suicidal thoughts but no plan or intent. In the ED, pt's utox was negative. On the unit, pt presents as anxious. Pt reports in past few week, after getting increasingly more anxious, palpitation, sense of impending doom. Pt reports having flu and started tamiflu. Pt reports poor sleep. She adamantly denies any plan or intent to harm herself. Pt reports she was seeking outpatient support as she is not planning nor is having any thoughts of harming herself. Parents denied any safety concerns and agree with continuing outpatient support through her school. No hx of VH/AH. No s/s of eric or hypomania. Medical Evaluation Reviewed: Yes Status at Discharge Cognitive/behavioral status at discharge: Pt with calm, less anxious mood. No SI/HI. No psychosis or delusions. Future oriented. No signs of aggression towards self or others. Parents denied safety concerns and in agreement with discharge. Functional status at discharge: independent ambulation Overall status at discharge: patient is progressing back to baseline Time Spent with Patient Time attestation: Total time managing care of this patient today ____ minutes. Discharge Plan Discharge Anticipated Discharge Date/Time: 08/31/22 16:05 Patient Disposition: Home, Self-Care Discharge Diagnosis: adjustment d/o with anxious mood Referrals: [facility] [Provider Group] - 1 Week Discharge Medications: No Action No Known Home Meds Discharge Orders: Discharge Order (Routine); Ordered 08/31/22 Ordered By: Ting Dayl Diet: Regular diet Activity on Discharge: As tolerated Stand Alone Forms: Patient Portal Discharge page Care Plan Goals: 1. maintain mood NO SI/HI No s/s of psychosis Health Concerns: Follow up with PCP Plan of Treatment: Follow up with referrals Assessment: Pt calmer, less anxious. No SI/HI. No psychosis/delusions. Future oriented. No signs of aggression towards self or others.
== END 2022-08-31 16:43 | disposition home or self-care (01) | DRG 755 ==
LOC: HO.ED 13:56 → HO.PADLT16 08-30 16:09
PROVIDERS: Admitting Provider Psychiatry & Neurology Psychiatry; Emergency Provider Emergency Medicine; Visit Provider Social Worker
DX: F43.22 Adjustment disorder with anxiety (principal); R45.851 Suicidal ideations; Z20.822 Contact with and (suspected) exposure to COVID-19
CPT/HCPCS: 36415; 80053; 80307; 81001; 81025; 82077; 82248; 83690; 84702; 85025; 87635; 99285; S9485